=== PATIENT | male | born 2005 | race Caucasian/White ===

== ENCOUNTER 2025-09-22 10:44 | Emergency (ER) | payer OTHER, SELFPAY ==
[2025-09-22 10:50] VITALS: BP 143/91; PULSE 75; RESP 18; TEMP 36.5; O2SAT 99
--- NOTE | 2025-09-22 11:06 | CRLHL7_ITS ---
For Patients: As a result of the Cures Act, medical imaging exams and procedure reports are released immediately into your electronic medical record. You may view this report before your referring provider. If you have questions, please contact your health care provider. Indication: Possible shoulder dislocation. Technique: Left shoulder 3 views. Comparison: None. Findings: Bones: Alignment is normal. No fractures or bone lesions. No sign of dislocation. Glenohumeral joint: Unremarkable. Acromioclavicular joint: Unremarkable. Subacromial space: Unremarkable. Soft tissues: Unremarkable. Dictated by Kulwant Simpson MD @ 09/22/2025 12:22:58 PM (Electronically Signed)
--- NOTE | 2025-09-22 11:12 | ED.UPPEXIN ---
HPI - Extremity Injury (Upper) General Date Seen: 09/22/25 Chief Complaint: Extremity Pain/Injury, Upper Stated Complaint: left shoulder injury Time Seen by Provider: 09/22/25 10:56 Source: patient Mode of arrival: ambulatory Limitations: no limitations History of Present Illness HPI narrative: Patient is a 20-year-old male presenting for left shoulder pain. He states he was walking up some steps when he tripped and caught himself on the railing with his left arm. States after that he was having quite a bit of pain to his left shoulder and was unable to move it. They came to the emergency department and on the way here he was trying to adjust showed to position the felt more comfortable. He then heard a pop his shoulder and pain seemed to improve significantly. States pain is now a 2/10 any is able to move his shoulder without issues. Denies any injuries to his shoulder in the past. No other concerns noted at this time. He states he believes he dislocated his shoulder and then reduced it on his own. Related Data Home Medications ?Medication ?Instructions ?Recorded ?Confirmed No Known Home Medications 09/22/25 09/22/25 Allergies Allergy/AdvReac Type Severity Reaction Status Date / Time No Known Drug Allergies Allergy Verified 09/22/25 10:50 Review of Systems Narrative: Pertinent systems reviewed and were negative unless stated in HPI Exam Narrative: Exam Narrative: Const: Well-nourished, Well-developed, in mild distress Eyes: PERRL, no conjunctival injection, and symmetrical lids HENT: Atraumatic external nose and ears. Moist mucous membranes. CVS: Radial pulses 2+ and equal bilateral MSK:Extremities w/o deformity, Normal Active ROM Skin: Warm, Dry. No rashes or lesions. Neuro: Normal Muscle tone, No focal neurological deficits. Psych: Awake, Alert, & Oriented x3. Appropriate mood and affect. Const: Vital Signs, click to edit/add: Vital Signs - 24 hr 09/22/25 10:50 Temperature 97.7 F Pulse Rate [Pulse Oximeter] 75 Respiratory Rate 18 Blood Pressure [Ri ght Upper Arm] 143/91 H Pulse Oximetry 99 Oxygen Delivery Me thod Room Air Course Vital Signs Vital signs: Initial Vital Signs Temperature 97.7 F 09/22/25 10:50 Temperature Source Temporal Artery Scan 09/22/25 10:50 Pulse Rate 75 09/22/25 10:50 Respiratory Rate 18 09/22/25 10:50 Blood Pressure 143/91 H 09/22/25 10:50 Blood Pressure Mean 108 H 09/22/25 10:50 Pulse Oximetry 99 09/22/25 10:50 Oxygen Delivery Method Room Air 09/22/25 10:50 Vital Signs Temperature 97.7 F 09/22/25 10:50 Pulse Rate 75 09/22/25 10:50 Respiratory Rate 18 09/22/25 10:50 Blood Pressure 143/91 H 09/22/25 10:50 Pulse Oximetry 99 09/22/25 10:50 Oxygen Delivery Method Room Air 09/22/25 10:50 Temperature 97.7 F 09/22/25 10:50 Pulse Rate 75 09/22/25 10:50 Respiratory Rate 18 09/22/25 10:50 Blood Pressure 143/91 H 09/22/25 10:50 Pulse Oximetry 99 09/22/25 10:50 Oxygen Delivery Method Room Air 09/22/25 10:50 MDM - Extremity Injury (Upper) MDM Narrative Medical decision making narrative: patient is a 20-year-old male presenting for concerns a dislocated his shoulder then reduced it on his own. On my exam I do not see signs of current dislocation. I will do x-ray of the shoulder to look for any signs of other in the the the her with a dislocation. based on his description does sound like his shoulder was dislocated and self reduced. x-ray interpreted by myself and the radiologist showed no acute concerning abnormalities. He will be discharged. Diagnosis: left Shoulder pain Imaging Data x-ray left shoulder: Attestation: I have reviewed the pertinent imaging results. Radiologist's impression: Bones: Alignment is normal. No fractures or bone lesions. No sign of dislocation. Glenohumeral joint: Unremarkable. Acromioclavicular joint: Unremarkable. Subacromial space: Unremarkable. Soft tissues: Unremarkable. Dictated by Kulwant Simpson MD @ 09/22/2025 12:22:58 PM Discharge Plan Discharge Clinical Impression: Acute pain of left shoulder Patient Disposition: Home, Self-Care Condition: Stable Instructions: Shoulder Pain (ED) Additional Instructions: based on your description sounds like he may have partially dislocated your shoulder and then popped it back into place. If he persistently have shoulder pain follow-up with your primary care provider or Orthopedics. Return to emergency department for new or worsening symptoms. Take Tylenol and ibuprofen for pain. Prescriptions: No Action No Known Home Medications Follow Up/Referrals: Provider,Not a Local [Primary Care Provider, Family Practice] Stand Alone Forms: [employer] Info Instructions
== END 2025-09-22 12:39 | disposition home or self-care (01) ==
PROVIDERS: Emergency Provider Student in an Organized Health Care Education/Training Program
DX: M25.512 Pain in left shoulder (principal); W10.9XXA Fall (on) (from) unspecified stairs and steps, initial encounter; Y93.01 Activity, walking, marching and hiking
CPT/HCPCS: 73030; 99283